=== PATIENT | male | born 2000 | race Caucasian/White ===

== ENCOUNTER 2020-07-20 15:43 | Emergency (ER) | payer OTHER | END 2020-07-20 18:11 | disposition home or self-care (01) | LOC: ER1 15:43 | DX: S01.111A Laceration without foreign body of right eyelid and periocular area, initial encounter (principal); W50.0XXA Accidental hit or strike by another person, initial encounter; Y93.67 Activity, basketball; Y92.39 Other specified sports and athletic area as the place of occurrence of the external cause | CPT/HCPCS: 12011; 99283 ==